=== PATIENT | male | born 1995 | race Caucasian/White ===

== ENCOUNTER → 2020-06-17 | Outpatient (CLI) | payer OTHER | LOC: US 09:13 | DX: R79.89 Other specified abnormal findings of blood chemistry (principal); K76.0 Fatty (change of) liver, not elsewhere classified | CPT/HCPCS: 76700 ==

== ENCOUNTER 2021-07-14 06:26 | Emergency (ER) | payer OTHER ==
[2021-07-14 10:12] LABS: HEMOGLOBIN 12.5 gm/dl (14.0-17.5); RED BLOOD COUNT 4.74 M/UL (4.20-5.50); WHITE BLOOD COUNT 15.3 K/UL (4.5-11.0)
[2021-07-14 10:27] LABS: BUN/CREATININE RATIO 23 (0-10)
[2021-07-14] MEDS ORDERED: TORADOL 10 MG T10 MG PO (14:35)
== END 2021-07-14 15:01 | disposition home or self-care (01) ==
LOC: ER1 06:26
PROVIDERS: Physician Assistant
DX: I88.9 Nonspecific lymphadenitis, unspecified (principal); R31.9 Hematuria, unspecified; M54.50 Low back pain, unspecified; K21.9 Gastro-esophageal reflux disease without esophagitis; Z88.0 Allergy status to penicillin; Z79.899 Other long term (current) drug therapy
CPT/HCPCS: 80053; 81001; 85025; 87086; 96372; 99284; J1885